=== PATIENT | male | born 1960 | race African-American/Black ===

== ENCOUNTER 2024-03-08 13:10 | Emergency (ER) | payer OTHER ==
[~2024-03-08] VITALS: Ht 177.8 cm; Wt 75.0 kg
[~2024-03-08 13:10] MED LIST: AMOX-494 MT; APIX5TAB PO; DILT180C66 MT; TRAM50TA3 PO; VENL37.586 PO
[2024-03-08 13:12] VITALS: O2SAT 98
[2024-03-08] MEDS: SODIUM CHLORIDE 0.9% 500 ML IV ONE (13:57)
[2024-03-08 15:17] LABS: CLARITY URINE CLEAR (CLEAR); COLOR URINE YELLOW (YELLOW); GLUCOSE URINE NEGATIVE (NEGATIVE); KETONES URINE NEGATIVE (NEGATIVE); LEUKOCYTE ESTERASE URINE NEGATIVE (NEGATIVE); NITRITE URINE NEGATIVE (NEGATIVE); OCCULT BLOOD URINE NEGATIVE (NEGATIVE); PROTEIN URINE NEGATIVE (NEGATIVE); SPECIFIC GRAVITY URINE 1.013 (1.005-1.030); UROBILINOGEN URINE 0.2 E.U./dL (0.2-1.0)
[2024-03-08 15:42] LABS: HEMATOCRIT. 35.7 % (42.0-52.0); HEMOGLOBIN. 11.5 g/dL (14.0-18.0); MEAN CORPUSCULAR HEMOGLOBIN 29.1 pg (28.0-32.0); MEAN CORPUSCULAR HGB CONC 32.2 g/dL (31.0-37.0); MEAN CORPUSCULAR VOLUME 90.2 fL (80.0-94.0); MEAN PLATELET VOLUME 9.3 fl (7.4-10.4); PLATELET 307 x1000/uL (130-400); RED BLOOD CELL COUNT 3.96 mill/uL (4.7-6.1); RED CELL DISTRIBUTION WIDTH 16.9 % (11.6-14.6); WHITE BLOOD COUNT 20.6 x1000/uL (4.5-11.0)
[2024-03-08 15:45] LABS: DIFFERENTIAL COMMENT 1
[2024-03-08 15:49] LABS: CHLORIDE 97 mEq/L (98-107); POTASSIUM 3.4 mEq/L (3.5-5.1); SODIUM 137 mEq/L (136-145)
[2024-03-08 15:50] LABS: CARBON DIOXIDE 34 mEq/L (21-32)
[2024-03-08 15:55] LABS: CREATININE 1.1 mg/dL (0.6-1.3); GLUCOSE 110 mg/dL (70-105); UREA NITROGEN BLOOD 28 mg/dL (9-23)
[2024-03-08 15:56] LABS: TROPONIN I HIGH SENSITIVITY 24 ng/L (3.0-53)
[2024-03-08 15:57] LABS: LACTIC ACID 2.7 mmol/L (0.4-2.0)
[2024-03-08 15:58] LABS: CALCIUM 15.6 mg/dL (8.7-10.4)
[2024-03-08 18:00] LABS: ANISOCYTOSIS 1+; PLATELET ESTIMATE NORMAL
[2024-03-08 18:35] VITALS: BP 147/88; PULSE 113; RESP 18; TEMP 37.16964; O2SAT 98
[2024-03-08 18:36] LABS: TROPONIN I HIGH SENSITIVITY 23 ng/L (3.0-53)
== END 2024-03-08 19:11 | disposition short-term general hospital (02) ==
LOC: ER 13:10 → CANBEDREQ 17:10 → ER 19:11
DX: C79.51 Secondary malignant neoplasm of bone (principal); C50.922 Malignant neoplasm of unspecified site of left male breast; E83.52 Hypercalcemia; E86.0 Dehydration; E87.6 Hypokalemia; I10 Essential (primary) hypertension; I48.91 Unspecified atrial fibrillation; F19.90 Other psychoactive substance use, unspecified, uncomplicated; Z85.3 Personal history of malignant neoplasm of breast; Z79.899 Other long term (current) drug therapy
CPT/HCPCS: 80048; 81003; 83880; 83605; 85025; 84484; 36415; 71045; 93005; 99291; J7040; Z7610